=== PATIENT | female | born 1995 | race Caucasian/White ===

== ENCOUNTER → 2017-07-25 | Outpatient (CLI) | payer BC ==
--- NOTE | 2017-07-26 01:51 | MR ---
EXAMINATION TYPE: MR pituitary wo/w con DATE OF EXAM: 07/25/2017 COMPARISON: NONE HISTORY: Lactating TECHNIQUE: Multiplanar, multisequence images of the brain and brainstem is performed without and with IV contras t, utilizing 6.5 mL intravenous Gadavist . FINDINGS: Pituitary stalk is in the midline. Gland is somewhat bulky and has a convex superior surfac e. Optic chiasm appears normal. There is normal flow-void in the anterior middle and posterior cerebr al arteries. There is no sign of parasellar mass. The floor of the sella turcica is slightly lower on the left side compared to the right. There is also subtle slight decreased enhancement of the inferi or pituitary gland on the left side compared to the right. Ventricles have normal size. Corpus callosum appears normal. IMPRESSION: There is subtle larger left side of the pituitary gland compared to the right with decrea sed enhancement that could relate to a microadenoma. This measures 4 mm and is best seen on contrast coronal image 9.
== END | disposition home or self-care (01) ==
LOC: RADMRIMAIN 15:42
PROVIDERS: ATTEND Midwife
DX: N64.3 Galactorrhea not associated with childbirth (principal)
CPT/HCPCS: 70553; A9581

== ENCOUNTER 2022-07-17 05:11 | Inpatient (IN) | payer BC ==
[2022-07-17] MEDS ORDERED: METHYLERGONOVINE 0.2 MG/ML 1 ML AMP IM PRN (05:37)
[2022-07-17] MEDS ORDERED: CARBOPROST TROMETHAMINE 250 MCG/ML 1 ML AMP IM PRN (05:37)
[2022-07-17] MEDS ORDERED: OXYTOCIN 10 UNIT/ML 1 ML VIAL IM PRN (05:37)
[2022-07-17] MEDS ORDERED: LIDOCAINE 0.5% (PF) 5 MG/ML (50 ML SDV) SQ PRN (05:37)
[2022-07-17] MEDS ORDERED: TERBUTALINE 1 MG/ML VIAL SQ PRN (05:37)
[2022-07-17] MEDS ORDERED: OXYTOCIN 30 UNITS/500 ML NS 30 UNIT in SALINE 1 500ML.BAG IV SCH (05:45)
[2022-07-17] MEDS ORDERED: LACTATED RINGERS 1,000 ML IV SCH (05:45)
[2022-07-17 05:50] LABS: Basophils % (A) 0 %; Eosinophils % (A) 0 %; HCT 43.2 % (34.0-46.0); HGB 13.9 gm/dL (11.4-16.0); Lymphocytes # (A) 1.2 k/uL (1.0-4.8); Lymphocytes % (A) 9 %; MCH 29.4 pg (25.0-35.0); MCHC 32.2 g/dL (31.0-37.0); MCV 91.2 fL (80.0-100.0); Mean Platelet Volume 9.8; Monocytes # (A) 0.5 k/uL (0-1.0); Monocytes % (A) 4 %; Neutrophils # (A) 11.3 k/uL (1.3-7.7); Neutrophils % (A) 86 %; Platelet Count 240 k/uL (150-450); RBC 4.74 m/uL (3.80-5.40); RDW 14.8 % (11.5-15.5); WBC 13.1 k/uL (3.8-10.6)
[2022-07-17] MEDS ORDERED: BUTORPHANOL 1 MG/ML 1 ML VIAL IV PRN (06:34)
--- NOTE | 2022-07-17 07:49 | P.HPOB ---
History of Present Illness H&P Date: 07/17/22 Chief Complaint: Here in active labor This is a 26-year-old female 1 para 0 EDC 07/21/2022 at 39-3/7 weeks' gestation. Patient presents with regular strong uterine contractions in active labor. Fetus is been active throughout the . Past medical history can for anxiety and depression. Past surgical history negative. Current medications vitamins daily, Zoloft 25 mg daily, vitamin D3 daily. ALLERGIES none known. Family history is essentially negative. Social history patient is single, father of the baby is involved and present. She denies alcohol, tobacco, or drug use. history is significant for late transfer, blood type O+, rubella status immune. VDRL testing, urine culture, hepatitis B surface antigen, HIV testing, gonorrhea and chlamydia cultures all negative. One-hour Glucola 74. Group B strep cultures negative. On exam patient is 5 foot 7 inches, 165 pounds, blood pressure 119/74. The general physical exam is within normal limits. Cervix is completely dilated, 100% effaced, -1 station, vertex presentation. Artificial amniorrhexis reveals clear fluid. heart rate is consistent with reactive NST. Impression: 39-3/7 weeks intrauterine , here in active spontaneous labor. All signs reassuring. Plan: We will begin the second stage of labor at this time. Continue close maternal and surveillance. Anticipate normal spontaneous vaginal delivery. Review of Systems Constitutional: Reports as per HPI Past Medical History History of Any Multi-Drug Resistant Organisms: None Reported Past Surgical History: No Surgical Hx Reported Past Anesthesia/Blood Transfusion Reactions: No Reported Reaction Past Psychological History: Depression Smoking Status: Former smoker Past Alcohol Use History: None Reported Past Drug Use History: None Reported - Past Family History Mother Family Medical History: No Reported History Medications and Allergies Home Medications Medication Instructions Recorded Confirmed Type Sertraline [Zoloft] 1 tab PO DAILY 07/17/22 07/17/22 History Allergies Allergy/AdvReac Type Severity Reaction Status Date / Time No Known Allergies Allergy Verified 07/17/22 05:36 Exam Vital Signs Temp Pulse Resp BP Pulse Ox 07/17/22 05:51 96.9 F L 67 16 119/74 97 Intake and Output 07/16/22 07/17/22 07/17/22 22:59 06:59 14:59 Other: Weight 74.843 kg See dictation under HPI please Results Result Diagrams: 07/17/22 05:40 Abnormal Lab Results - Last 24 Hours (Table) 07/17/22 Range/Units 05:40 WBC 13.1 H (3.8-10.6) k/uL Neutrophils # 11.3 H (1.3-7.7) k/uL Assessment and Plan Assessment: 39-3/7 weeks intrauterine , active spontaneous labor. All signs reas suring. Plan: Begin second stage of labor. Close maternal and surveillance. Anticipate normal spontaneous vaginal delivery. Time with Patient: Less than 30
[2022-07-17] MEDS ORDERED: diphenhydrAMINE 50 MG CAP PO PRN (08:41)
[2022-07-17] MEDS ORDERED: diphenhydrAMINE 25 MG CAP PO PRN (08:41)
[2022-07-17] MEDS ORDERED: LANOLIN CREAM 5 GM TUBE TOPICAL PRN (08:41)
[2022-07-17] MEDS ORDERED: BENZOCAINE/MENTHOL SPRAY 1 GM/SPRAY AEROSOL TOPICAL PRN (08:41)
[2022-07-17] MEDS ORDERED: HYDROCORTISONE 2.5% RECTAL CREAM 30 GM TUBE RECTAL PRN (08:41)
[2022-07-17] MEDS ORDERED: SIMETHICONE 80 MG CHEWABLE PO PRN (08:41)
[2022-07-17] MEDS ORDERED: ZOLPIDEM 5 MG TAB PO PRN (08:41)
[2022-07-17] MEDS ORDERED: diphenhydrAMINE 50 MG/ML 1 ML VIAL IVP PRN ×2 (08:41)
--- NOTE | 2022-07-17 08:41 | P.PROBDLV ---
Vaginal Delivery Note - . Vaginal Delivery Note: This is a 26 rolled white female 1 para 0 EDC 07/21/2022 at 39-3/7 weeks' gestation who presented in active labor from home, unremarkable, group B strep cultures negative, rubella status immune. Blood type O positive. Please see dictated history and physical for details. Artificial amniorrhexis revealed clear fluid. Stadol was given 1. Patient became completely dilated at 0738 hours and began the second stage of labor at that time. Perineal body was prepped and draped in usual sterile fashion. With excellent maternal expulsive efforts the 's head delivered occiput anterior and restituted accordingly. There was no nuchal cord noted. The all sponge needle and enhancement counts are correct at the end of the procedure. right or anterior shoulder was gently delivered from underneath the pubic symphysis at which time the oropharynx, nasopharynx, and external nares were all bulb suctioned. Patient was officially delivered of a liveborn male at 0824 hours. Umbilical cord was doubly clamped and ligated, he was handed to waiting nurses for evaluation where scores of 8 and 9 at one and 5 minutes respectively were given. Placenta delivered spontaneously at 0827 hours, it was inspected and noted to be intact with trivascular cord. Uterus is then massaged. Careful inspection of cervix, vagina, perineum, periurethral, and perirectal areas a small first- degree perineal laceration easily repaired. Total estimated blood loss 250 mL's. Infant weighs 7 lbs. 14 oz. or 3570 g. Patient is requesting circumcision for her son. All sponge needle and instrument counts are correct at the end of the procedure.
[2022-07-17] MEDS: IBUPROFEN 600 MG TAB PO PRN ×3 (09:58→23:52)
[2022-07-17] MEDS: ACETAMINOPHEN TAB 325 MG TAB PO PRN (19:28)
[2022-07-17] MEDS: SENNOSIDES-DOCUSATE SODIUM 1 EACH TAB PO SCH (19:28)
[2022-07-18] MEDS: ACETAMINOPHEN TAB 325 MG TAB PO PRN ×2 (02:46→08:18)
[2022-07-18] MEDS: IBUPROFEN 600 MG TAB PO PRN ×2 (05:36→11:47)
[2022-07-18 07:31] LABS: Basophils % (A) 0 %; Eosinophils # (A) 0.1 k/uL (0-0.7); Eosinophils % (A) 1 %; HGB 11.2 gm/dL (11.4-16.0); Lymphocytes % (A) 17 %; MCH 29.8 pg (25.0-35.0); Mean Platelet Volume 10.1; Monocytes # (A) 0.5 k/uL (0-1.0); Monocytes % (A) 5 %; Neutrophils % (A) 76 %; Platelet Count 187 k/uL (150-450); RBC 3.76 m/uL (3.80-5.40); RDW 15.2 % (11.5-15.5); WBC 11.9 k/uL (3.8-10.6)
[2022-07-18] MEDS: SENNOSIDES-DOCUSATE SODIUM 1 EACH TAB PO SCH (08:20)
--- NOTE | 2022-07-18 08:55 | P.DS ---
Providers Date of admission: 07/17/22 05:24 Expected date of discharge: 07/18/22 Attending physician: Reema Eduardo Primary care physician: Stated None Hospital Course: This is a 26 rolled white female 1 para 0 EDC 07/21/2022 at 39-3/7 weeks' gestation who presented in spontaneous labor. remarkable for blood type O+, group B strep cultures negative, rubella status immune. Please see dictated history and physical for details. Artificial amniorrhexis revealed clear fluid. Patient went on to swiftly deliver a liveborn male infant with scores of 8 and 9 at one and 5 minutes respectively. He weighed 3570 g or 7 lbs. 14 oz. There was an estimated blood loss of 250 mL, a small first-degree perineal laceration easily repaired. Please see dictated delivery note for details. The spine the patient is doing well. She is voiding, ambulating, passing flatus without difficulty. Vital signs are stable and she is afebrile. Fundus is firm and in the midline, symmetric and 18 week size. Extremities are negative for edema. [place] infant is doing well, circumcision has been performed. Patient is judged to be in very good condition for discharge home. She will follow-up with me in the office in 6 weeks. I have reminded her no intercourse, tampons or douching. She will use [id number] Advil or Aleve, or Motrin as needed for pain. She'll call with any fevers shakes or chills, foul smelling or copious lochia, with the passage of large blood clots, with any pain not alleviated by [id number] products, or indeed with any concerns. We have briefly reviewed the options for contraception and we will discuss this further in the office. 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 Assessment: Doing well day #1 Patient Condition at Discharge: Good Plan - Discharge Summary Discharge Rx Participant: No New Discharge Prescriptions: No Action Sertraline [Zoloft] 1 tab PO DAILY Discharge Medication List Sertraline [Zoloft] 1 tab PO DAILY 07/17/22 [History] Follow up Appointment(s)/Referral(s): Reema Eduardo MD [STAFF PHYSICIAN] - 6 Weeks Discharge Disposition: HOME SELF-CARE
[2022-07-18 10:54] VITALS: BP 112/71; PULSE 86; RESP 18; TEMP 97.9
== END 2022-07-18 12:00 | disposition home or self-care (01) | DRG 807 ==
LOC: FBPOP 05:11 → 4FBP 05:24
PROVIDERS: ADMIT Obstetrics & Gynecology; ATTEND Obstetrics & Gynecology
PROC: 10E0XZZ Delivery of Products of Conception, External Approach (ICD-10-PCS; principal; 2022-07-17)
PROC: 0HQ9XZZ Repair Perineum Skin, External Approach (ICD-10-PCS; 2022-07-17)
PROC: 4A0HXCZ Measurement of Products of Conception, Cardiac Rate, External Approach (ICD-10-PCS; 2022-07-17)
PROC: 10907ZC Drainage of Amniotic Fluid, Therapeutic from Products of Conception, Via Natural or Artificial Opening (ICD-10-PCS; 2022-07-17)
DX: O62.3 Precipitate labor (principal); F32.A Depression, unspecified; O70.0 First degree perineal laceration during delivery; F41.9 Anxiety disorder, unspecified; O71.82 Other specified trauma to perineum and vulva; O99.344 Other mental disorders complicating childbirth; Z3A.39 39 weeks gestation of pregnancy; Z79.899 Other long term (current) drug therapy; Z37.0 Single live birth; Z87.891 Personal history of nicotine dependence
CPT/HCPCS: 85025; 86850; 86900; 86901